=== PATIENT | female | born 1945 | race Caucasian/White ===

== ENCOUNTER 2021-07-10 10:24 | Day surgery (SDC) | payer MEDICARE, BC ==
[2021-07-05 15:49] LABS: BASOPHILS % (AUTO) 0.3 % (0-1); EOSINOPHILS # (AUTO) 0.1 X10'3 (0-0.9); EOSINOPHILS % (AUTO) 0.9 % (0-6); HEMATOCRIT 49.8 % (35.0-45.0); HEMOGLOBIN 16.5 g/dl (12.0-16.0); LYMPHOCYTES # (AUTO) 2.5 X10'3 (1.1-4.8); LYMPHOCYTES % (AUTO) 34.1 % (21-51); MEAN CORPUSCULAR HGB CONC 33.2 g/dL (33.0-36.5); MEAN CORPUSCULAR VOLUME 93.6 FL (78-98); MEAN PLATELET VOLUME 8.9 FL (7.4-10.4); MONOCYTES # (AUTO) 0.8 X10'3 (0-0.9); MONOCYTES % (AUTO) 11.3 % (2-12); NEUTROPHILS # (AUTO) 3.9 X10'3 (1.8-7.7); NEUTROPHILS % (AUTO) 53.4 % (42-75); PLATELET COUNT 166 X10'3 (140-440); RED BLOOD COUNT 5.32 X10'6 (4.20-5.60); RED CELL DISTRIBUTION WIDTH 13.3 % (11.5-14.5); WHITE BLOOD COUNT 7.3 X10'3 (4.5-11.0)
[2021-07-05 15:54] LABS: ALBUMIN 3.5 G/DL (3.4-5.0); ANION GAP 7 (8-16); BLOOD UREA NITROGEN 25 MG/DL (7-18); BUN/CREATININE RATIO 34.7 (6.6-38.0); CALCIUM 8.4 MG/DL (8.5-10.1); CHLORIDE 103 MMOL/L (99-107); CREATININE 0.72 MG/DL (0.40-0.90); GLUCOSE 73 MG/DL (70-104); SODIUM 140 MMOL/L (135-145); TOTAL CARBON DIOXIDE 30.3 MMOL/L (24-32); eGFR 79 ML/MIN
[2021-07-05 15:55] LABS: APTT 30 SECONDS (22-32)
[~2021-07-10] VITALS: Ht 167.6 cm; Wt 69.8 kg
[2021-07-10] VITALS (9 sets, daily range): BP systolic 112–147; BP diastolic 53–99
[2021-07-10] MEDS ORDERED: diphenhydrAMINE 25mg capsule PO PRN (10:45)
[2021-07-10] MEDS ORDERED: LORazepam 0.5 MG tablet PO PRN (10:45)
[2021-07-10] MEDS ORDERED: normal saline 1,000 ML IV SCH (10:45)
[2021-07-10] MEDS ORDERED: APIX5TAB3 PO (10:49)
[2021-07-10] MEDS ORDERED: LOSA25TA41 PO (10:49)
[2021-07-10] MEDS ORDERED: [UNRECOGNIZED DRUG - CODE] PO (10:49)
[2021-07-10] MEDS ORDERED: UBID50TA3 PO (10:49)
[2021-07-10] MEDS ORDERED: METO-411 PO (10:49)
[2021-07-10] MEDS ORDERED: MULT-1141 PO (10:49)
[2021-07-10] MEDS ORDERED: VITA1CAP PO (10:49)
[2021-07-10] MEDS ORDERED: heparin 1,000unit/ml 10ml vial 10 ML ONE (13:32)
[2021-07-10] MEDS ORDERED: midazolam 1 mg/ML 2ml injection ONE (13:32)
[2021-07-10] MEDS ORDERED: LIDOCAINE 1% w/preservative (10 MG/ML) inj. 10mL VIAL ONE (13:32)
[2021-07-10] MEDS ORDERED: iohexol 350MG/ML 100ml bottle IV ONE (13:32)
[2021-07-10] MEDS ORDERED: nitroGLYCERIN-Tridil 50MG/D5W 250 ML IV ONE (13:32)
[2021-07-10] MEDS ORDERED: verapamil 2.5 mg/ml inj IV ONE (13:32)
[2021-07-10] MEDS ORDERED: fentaNYL/PF 50MCG/1 ML 2ML syringe ONE (13:33)
[2021-07-10] MEDS ORDERED: proCHLORperazine 10 MG/2 ml inj IV PRN (14:50)
[2021-07-10] MEDS ORDERED: OXAZEpam 15mg capsule PO PRN (14:50)
[2021-07-10] MEDS ORDERED: normal saline 1000ml 1,000 ML IV SCH (14:50)
[2021-07-10] MEDS ORDERED: ondansetron/PF 4mg/2ml inj IV PRN (14:50)
== END 2021-07-10 17:00 | disposition home or self-care (01) ==
LOC: SSTAY O 10:24
PROVIDERS: ATTEND Internal Medicine Interventional Cardiology
DX: R06.02 Shortness of breath (principal); I07.1 Rheumatic tricuspid insufficiency; J45.909 Unspecified asthma, uncomplicated; I10 Essential (primary) hypertension; I48.91 Unspecified atrial fibrillation; I42.0 Dilated cardiomyopathy; F43.10 Post-traumatic stress disorder, unspecified; M19.90 Unspecified osteoarthritis, unspecified site; Z86.718 Personal history of other venous thrombosis and embolism; Z79.899 Other long term (current) drug therapy; Z79.01 Long term (current) use of anticoagulants
CPT/HCPCS: 36415; 80048; 85025; 85610; 85730; 93005; 93458; 99152; 99153; C1769; C1894; J1644; J2250; J3010; J3490; J7030; Q0163; Q9967; A4620; A5120; A6258